=== PATIENT | male | born 1960 ===

== ENCOUNTER → 2018-08-04 | Day surgery (SDC) | payer OTHER ==
[2018-08-04] VITALS (10 sets, daily range): BP systolic 95–129; BP diastolic 53–75
[~2018-08-04] VITALS: Ht 175.3 cm; Wt 77.1 kg
[~2018-08-04] MED LIST: Atropine Sulfate 0.4mg/ml inj IVP PRN; Bupivacaine w/Epi 0.25% 30ml Vial INJ ONE; D5 1/2NS 1,000 ML IV SCH; Dexamethasone 4mg/ml vial ONE; DiphenhydrAMINE 50mg/ml Inj IVP PRN; EPINEPHrine 1mg/1ml Amp IV ONE; EPINEPHrine 1mg/1ml Amp ONE; GLYBURIDE PO; HYDROcodone/Acetamin 7.5/325 tab ORAL PRN; HYDROmorphone 1mg/ml Carpuject SUBQ PRN; Hydromorphone 0.5mg/0.5ml inj IVP PRN; Ketorolac 30mg Inj IV PRN; LISINOPRIL20 MG ORAL; LORazepam Inj 2mg/ml 1ml IV PRN; LR 1000ml 1,000 ML IVLG SCH; LR 1000ml ONE; Lidocaine 1% MPF 10mg/ml 5ml ONE; METFORMIN PO; Meperidine 50mg/ml Inj(FOR RIGORS ONLY) IVP PRN; Metoclopramide 10mg/2ml Inj IVP PRN; Midazolam 2mg/2ml Inj IVP PRN; NS Irrig 4000ml IRRIG ONE; Norco 5mg/325mg tab ORAL PRN; Propofol 200mg/20ml IV ONE; Ropivacaine 5mg/ml Vial 30ml INJ ONE; Tylenol #3 tab (300mg/30mg) ORAL PRN; ceFAZolin 1gm IVPB IVPB ONE; celeBREX 200mg Cap **SURGERY PATIENTS ONLY ORAL ONE; fentaNYL 100 mcg/2 mL IV PRN; oxyCODONE HCL/Acetaminophen 5/325mg ORAL PRN; oxyCONTIN 20mg tab ORAL ONE
--- NOTE | 2018-08-04 07:56 | Pre-Procedure Note/Attestation ---
Pre-Procedure Note/Attestation Complete Prior to Procedure Planned Procedure: left Procedure Narrative: shoulder arthroscopy, sad, possible rc repair Indications for Procedure Pre-Operative Diagnosis: left shoulder impingment,rct Attestation I attest that I discussed the nature of the procedure; its benefits; risks and complications; and alternatives (and the risks and benefits of such alternatives ), prior to the procedure, with the patient (or the patient's legal enrollment representative). I attest that, if there was a reasonable possibility of needing a blood transfusion, the patient (or the patient's legal enrollment representative) was given the [facility] standardized written summary, pursuant to the Terrance Pena Blood Safety Act ([place] Health and Safety Code # 1645, as amended). I attest that I re-evaluated the patient just prior to the surgery and that there has been no change in the patient's H&P, except as documented below: Vega Becker MD Aug 04, 2018 07:56
--- NOTE | 2018-08-04 07:57 | Operative Note - PDOC ---
Operative Note Operative Note Pre-op Diagnosis: left shoulder impingment,rct Procedure: see op report Post-op Diagnosis: same as pre-op plus Operative Findings: consistent w/pre-op dx studies Anesthesia: regional, MAC Specimen: none Complications: none Condition: stable Estimated Blood Loss: none Implant(s) used?: No Vega Becker MD Aug 04, 2018 07:56
--- NOTE | 2018-08-04 14:37 | Anethesia Preoperative Eval ---
Anesthesia Pre-op PMH/ROS General Date of Evaluation: Aug 04, 2018 Time of Evaluation: 14:31 Anesthesiologist: Carmelina ASA Score: ASA 3 Mallampati Score Class I : Soft palate, uvula, fauces, pillars visible Class II: Soft palate, uvula, fauces visible Class III: Soft palate, base of uvula visible Class IV: Only hard plate visible Mallampati Classification: Class II Surgeon: Eugenio Diagnosis: L Shoulder Pain Surgical Procedure: L Shoulder Arthroscopy Anesthesia History: none Social History: current smoker Family History: no anesthesia problems Allergies: Coded Allergies: No Known Allergies (Unverified , 08/03/18) Medications: see eMAR Patient NPO?: Yes Past Medical History Cardiovascular: Reports: HTN, other - HL Endocrine: Reports: DM Anesthesia Pre-op Phys. Exam Physician Exam Last Vital Signs Date Time Temp Pulse Resp B/P (MAP) Pulse Ox O2 Delivery O2 Flow Rate FiO2 08/04/18 14:18 98.5 96 20 121/75 98 Room Air Constitutional: NAD Neurologic: CN 2-12 intact Cardiovascular: RRR Respiratory: CTA Gastrointestinal: S/NT/ND Airway Exam Mallampati Score: Class II MO: limited ROM: limited Teeth: missing, intact Anesthesia Pre-op A/P Risk Assessment & Plan Assessment: ASA 3 Plan: GA, SED, Supraclavicular Block Status Change Before Surgery: No Pre-Antibiotics Dru Gram Ancef IV Given Within 1 Hr of Incision: Yes Time Given: 15:01 Tam Cosme MD Aug 04, 2018 14:37
--- NOTE | 2018-08-04 15:35 | Immediate Post-Op Evaluation ---
Immediate Post-Op Evalulation Immediate Post-Op Evalulation Procedure: L Shoulder Arthroscopy Date of Evaluation: Aug 04, 2018 Time of Evaluation: 16:23 IV Fluids: 400 LR Blood Products: 0 Estimated Blood Loss: 10 Urinary Output: 0 Blood Pressure Systolic: 95 Blood Pressure Diastolic: 53 Pulse Rate: 96 Respiratory Rate: 16 O2 Sat by Pulse Oximetry: 100 Pain Score (1-10): 2 Nausea: No Vomiting: No Complications 0 Patient Status: awake, reacts, patent, none Hydration Status: adequate Dru Gram Ancef IV Given Within 1 Hr of Incision: Yes Time Given: 15:01 Tam Cosme MD Aug 04, 2018 15:35
--- NOTE | 2018-08-04 15:36 | 48 Hour Post Anesthesia Eval ---
Post Anesthesia Evaluation Procedure: L Shoulder Arthroscopy Date of Evaluation: Aug 04, 2018 Time of Evaluation: 18:32 Blood Pressure Systolic: 138 0: 78 Pulse Rate: 89 Respiratory Rate: 18 Temperature (Fahrenheit): 98.2 O2 Sat by Pulse Oximetry: 99 Airway: patent Nausea: No Vomiting: No Pain Intensity: 2 Hydration Status: adequate Cardiopulmonary Status: Stable Mental Status/LOC: patient returned to baseline Follow-up Care/Observations: 0 Post-Anesthesia Complications: 0 Follow-up care needed: ready to discharge Tam Cosme MD Aug 04, 2018 15:36
--- NOTE | 2018-08-04 23:45 | Operative Note - Dictated ---
DATE OF OPERATION: 08/04/2018 PREOPERATIVE DIAGNOSES: 1. Left shoulder rotator cuff tear. 2. Right shoulder impingement syndrome. POSTOPERATIVE DIAGNOSES: 1. Left shoulder partial subscapularis rotator cuff tear. 2. Left shoulder articular-sided partial supraspinatus rotator cuff tear. 3. Hypertrophic bursal tissue/impingement syndrome. PROCEDURES: 1. Left shoulder diagnostic arthroscopy with extensive debridement. 2. Left shoulder supraspinatus and subscapularis rotator cuff repair/debridement. 3. Left shoulder subacromial decompression and bursectomy. SURGEON: Vega Becker M.D. ANESTHESIA: Interscalene with general. INDICATION FOR PROCEDURE: The patient is a pleasant gentleman who has had progressive left shoulder pain. He has difficulty with overhead activities. He had an MRI, which showed a high-grade partial rotator cuff tear. Failing conservative treatment, he elected to undergo left shoulder arthroscopy, possible rotator cuff repair versus debridement with concurrent subacromial decompression and bursectomy. Risks, limitations, expectations, and complications of the procedure were discussed in detail. All questions were addressed. DESCRIPTION OF PROCEDURE: After informed consent was obtained, the patient was brought to the operative room. The patient was placed under general anesthesia. The patient was then carefully placed in beach-chair position. Left shoulder was prepped and draped in sterile manner. Time-out was performed. A posterolateral stab incision was then made. Trocar was introduced into the glenohumeral joint. There was significant erythema along the anterior labrum. There was some tearing along the insertion of the subscapularis. The biceps appeared to be intact. The undersurface of the rotator cuff might have high-grade partial rotator cuff tear. At this point, the camera was placed back in the subacromial space. Complete bursectomy was performed. The undersurface of the acromion was identified. Acromioplasty was started from lateral to medial and completed from posterior to anterior. Once that was done, the bursal side of the rotator cuff was evaluated and probed. This seemed pretty intact. Therefore, the camera was repositioned in the glenohumeral joint. The area of the partial rotator cuff tear was debrided. Once debridement was performed, it was felt that this represented a less than 50% partial articular-sided rotator cuff tear. Therefore, formal repair was not required. At this point, the instruments were removed. Portal sites were closed using 3-0 Monocryl sutures. Steri-Strips and sterile dressing were applied. The patient was awoken and taken to the recovery room with stable vital signs. ESTIMATED BLOOD LOSS: None. COMPLICATIONS: None. SPECIMENS: None. IMPLANTS: None. Vega Becker M.D. DR: JOVANA JOB#: [id number] CC:
== END | disposition home or self-care (01) ==
LOC: SUR 13:06
DX: M75.112 Incomplete rotator cuff tear or rupture of left shoulder, not specified as traumatic (principal); M75.42 Impingement syndrome of left shoulder; I10 Essential (primary) hypertension; E11.9 Type 2 diabetes mellitus without complications; F17.200 Nicotine dependence, unspecified, uncomplicated
CPT/HCPCS: 29823; 82962; J0171; J0690; J1100; J2250; J2405; J2704; J2795; 94003; 94150